=== PATIENT | female | born 1990 | race Hispanic/Latino ===

== ENCOUNTER 2017-12-31 13:46 | Emergency (ER) | payer BC, OTHER ==
[2017-12-31] MEDS ORDERED: SODIUM CHLORIDE 0.9% 1000ML 1,000 ML IV ONE (14:48)
[2017-12-31] MEDS ORDERED: ACETAMINOPHEN EXTRA STRENGTH 500 MG TABLET ONE (14:49)
[2017-12-31 14:50] LABS: BASOPHILS % (AUTO) 0.4 % (0.0-5.0); EOSINOPHILS % (AUTO) 4.5 % (0.0-8.0); HEMATOCRIT 39.5 % (36-48); LYMPHOCYTES % (AUTO) 20.4 % (21.0-51.0); MEAN CORPUSCULAR HEMOGLOBIN 32.6 pg (27.0-33.0); MEAN CORPUSCULAR HGB CONC 34.8 g/dL (32.0-36.0); MEAN CORPUSCULAR VOLUME 93.7 fL (79-99); MONOCYTES % (AUTO) 5.1 % (3.0-13.0); NEUTROPHILS % (AUTO) 69.6 % (40.0-77.0); PLATELET COUNT (AUTO) 245 K/uL (130-400); RED BLOOD CELL COUNT(AUTO) 4.21 MIL/uL (4.00-5.50); RED CELL DISTRIBUTION WIDTH 13.4 % (11.0-15.5); WHITE BLOOD COUNT (AUTO) 8.3 K/uL (4.8-10.8)
[2017-12-31 15:00] LABS: INR 0.97 (0.85-1.15); PARTIAL THROMBOPLASTIN TIME 30.3 SEC (26.3-35.5); PROTHROMBIN TIME 10.2 SEC (9.6-11.6)
[2017-12-31 15:03] LABS: CARBON DIOXIDE 25 mmol/L (21-32); CHLORIDE 102 mmol/L (101-111); CREATININE 0.9 mg/dL (0.5-1.5); GLOMERULAR FILTR. RATE CALC 79 mL/min (>60); GLUCOSE,RANDOM 87 mg/dL (70-105); SODIUM SERUM 139 mmol/L (136-145); UREA NITROGEN, BLOOD 8 mg/dL (7-18)
[2017-12-31 15:07] LABS: APPEARANCE,URINE Clear (CLEAR); BILIRUBIN,URINE Negative (NEGATIVE); COLOR,URINE Yellow (YELLOW); GLUCOSE, URINE (UA) Negative (NEGATIVE); KETONES,URINE Negative (NEGATIVE); LEUKOCYTE ESTERASE ,URINE Negative (NEGATIVE); NITRATE,URINE Negative (NEGATIVE); OCCULT BLOOD,URINE Negative (NEGATIVE); PROTEIN,URINE Negative (NEGATIVE)
[2017-12-31 15:19] LABS: ALANINE AMINOTRANSFERASE 50 U/L (12-78); ALBUMIN 3.8 g/dL (3.5-5.0); ASPARTATE AMINOTRANSFERASE 32 U/L (10-37); B-TYPE NATRIURETIC PEPTIDE 6 pg/mL (0-100); BILIRUBIN,TOTAL 0.3 mg/dL (0.2-1.0); CREATINE KINASE MB < 0.5 ng/mL (0.5-3.6); CREATINE KINASE, TOTAL 86 U/L (21-232); MYOGLOBIN 26 ng/mL (10-92); TOTAL PROTEIN, SERUM 7.5 g/dL (6.0-8.3); TROPONIN I < 0.04 ng/mL (0.00-0.06)
[2017-12-31] MEDS ORDERED: ORPHENADRINE CITRATE 30 MG/ML ML ONE (15:46)
[2017-12-31] MEDS ORDERED: KETOROLAC TROMETHAMINE 15MG/ML ONE (15:46)
== END 2017-12-31 18:19 | disposition home or self-care (01) ==
LOC: EDH 13:46
DX: M54.2 Cervicalgia (principal); M54.6 Pain in thoracic spine; J06.9 Acute upper respiratory infection, unspecified; R50.9 Fever, unspecified; H66.92 Otitis media, unspecified, left ear; E78.5 Hyperlipidemia, unspecified; Z88.1 Allergy status to other antibiotic agents; Z79.899 Other long term (current) drug therapy; Z72.0 Tobacco use
CPT/HCPCS: 36415; 71046; 80053; 81003; 81025; 82550; 82553; 83605; 83874; 83880; 84484; 85025; 85378; 85610; 85730; 87040 ×2; 87088; 87804 ×2; 93005; 96374; 96375; 99285; J1885; J2360; J7030